=== PATIENT | female | born 1950 | race African-American/Black ===

== ENCOUNTER 2017-02-03 23:32 | Emergency (ER) | payer MEDICARE, SELFPAY ==
[2017-02-04] MEDS ORDERED: HYDROcodone/Acetaminophen 10/325 mg Tablet ONE (01:38)
[2017-02-04] MEDS ORDERED: Ibuprofen 200 MG TAB ONE (01:38)
== END 2017-02-04 02:41 | disposition home or self-care (01) ==
LOC: ERS 23:32
DX: J06.9 Acute upper respiratory infection, unspecified (principal); I10 Essential (primary) hypertension; M75.101 Unspecified rotator cuff tear or rupture of right shoulder, not specified as traumatic; F17.210 Nicotine dependence, cigarettes, uncomplicated
CPT/HCPCS: 87081; 87430; 99406

== ENCOUNTER 2017-03-24 09:50 | Outpatient (CLI) | payer MEDICARE | END 2017-03-24 09:51 | disposition home or self-care (01) | LOC: BICMAMMO 09:50 | DX: Z12.31 Encounter for screening mammogram for malignant neoplasm of breast (principal) | CPT/HCPCS: 77063; 77067 ==

== ENCOUNTER 2021-10-04 10:31 | Outpatient (CLI) | payer MEDICARE | END 2021-10-04 10:32 | disposition home or self-care (01) | LOC: BICCT 10:31 | PROVIDERS: ATTEND Student in an Organized Health Care Education/Training Program | DX: Z12.2 Encounter for screening for malignant neoplasm of respiratory organs (principal); F17.210 Nicotine dependence, cigarettes, uncomplicated | CPT/HCPCS: 71271 ==

== ENCOUNTER 2022-02-17 15:02 | Outpatient (CLI) | payer MEDICARE | END 2022-02-17 15:03 | disposition home or self-care (01) | LOC: BICMAMMO 15:02 | PROVIDERS: ATTEND Student in an Organized Health Care Education/Training Program | DX: Z12.31 Encounter for screening mammogram for malignant neoplasm of breast (principal); Z13.820 Encounter for screening for osteoporosis; M81.0 Age-related osteoporosis without current pathological fracture; F17.200 Nicotine dependence, unspecified, uncomplicated; D50.9 Iron deficiency anemia, unspecified; M85.851 Other specified disorders of bone density and structure, right thigh | CPT/HCPCS: 71046; 77063; 77067; 77080 ==

== ENCOUNTER 2023-03-06 13:46 | Outpatient (CLI) | payer MEDICARE | END 2023-03-06 13:47 | disposition home or self-care (01) | LOC: BICMAMMO 13:46 | PROVIDERS: ATTEND Student in an Organized Health Care Education/Training Program | DX: Z12.31 Encounter for screening mammogram for malignant neoplasm of breast (principal) | CPT/HCPCS: 77063; 77067 ==

== ENCOUNTER 2023-12-12 10:49 | Outpatient (CLI) | payer MEDICARE | END 2023-12-12 10:50 | disposition home or self-care (01) | LOC: BICCT 10:49 | PROVIDERS: ATTEND Student in an Organized Health Care Education/Training Program | DX: Z12.9 Encounter for screening for malignant neoplasm, site unspecified (principal); F17.211 Nicotine dependence, cigarettes, in remission | CPT/HCPCS: 71271 ==